=== PATIENT | female | born 1975 | race Caucasian/White ===

== ENCOUNTER 2017-07-19 06:24 | Observation (INO) | payer BC ==
[2017-07-03 08:16] VITALS: Ht 152.4 cm; Wt 60.8 kg
--- NOTE | 2017-07-03 08:41 | PAT Medication Instructions ---
Service Date Jul 03, 2017. Current Home Medication List Acetaminophen/Codeine (Tylenol W/Codeine #3), 2 TAB PO Q4H PRN for Pain Lamotrigine (Lamictal), 150 MG PO BID Lorazepam (Lorazepam), 0.5 MG PO DAILY PRN for Migraine Ondansetron Hcl (Zofran), 4 MG PO Q6 PRN for Nausea Propranolol Hcl (Propranolol Hcl Er), 120 MG PO HS Medication Instructions For Your Scheduled Surgery - Take the following medications the morning of surgery with a sip of water: Acetaminophen/Codeine (Tylenol W/Codeine #3), 2 TAB PO Q4H PRN for Pain (okay to take up to 4 hours prior to surgery if needed) Lamotrigine (Lamictal), 150 MG PO BID Lorazepam (Lorazepam), 0.5 MG PO DAILY PRN for Migraine (if needed) Ondansetron Hcl (Zofran), 4 MG PO Q6 PRN for Nausea (if needed) - Take the following medications as scheduled the night before surgery: Acetaminophen/Codeine (Tylenol W/Codeine #3), 2 TAB PO Q4H PRN for Pain (if needed) Lamotrigine (Lamictal), 150 MG PO BID Lorazepam (Lorazepam), 0.5 MG PO DAILY PRN for Migraine (if needed) Ondansetron Hcl (Zofran), 4 MG PO Q6 PRN for Nausea (if needed) Propranolol Hcl (Propranolol Hcl Er), 120 MG PO HS If you have any questions please call us at [phone] or [phone] or [phone]
[2017-07-03 10:44] LABS: BASO % 1.1 %; BASO ABS # 0.06 K/uL (0-0.2); EOS % 2.2 %; EOS ABS # 0.12 K/uL (0-0.5); HEMATOCRIT 41.2 % (37-47); HEMOGLOBIN 13.7 g/dL (12.0-16.0); IG# 0.02 K/uL (0.00-0.02); LYMPH % 30.5 %; LYMPH ABS # 1.67 K/uL (1.2-3.4); MEAN CELL VOLUME 92.4 fL (80-100); MEAN CORPUSCULAR HEMOGLOBIN 30.7 pg (25-34); MEAN CORPUSCULAR HGB CONC 33.3 g/dl (32-36); MEAN PLATELET VOLUME 10.1 fL (7.4-10.4); MONO % 7.7 %; MONO ABS # 0.42 K/uL (0.11-0.59); NEUT % 58.1 %; NEUT ABS # 3.18 K/uL (1.4-6.5); PLATELET COUNT 202 K/uL (130-400); RED CELL DISTRIBUTION WIDTH CV 12.6 % (11.5-14.5); RED CELL DISTRIBUTION WIDTH SD 42.4 fL (36.4-46.3); WHITE BLOOD COUNT 5.47 K/uL (4.8-10.8)
[2017-07-19] VITALS (7 sets, daily range): BP systolic 94–100; BP diastolic 59–68; PULSE 75–87; TEMP 36.4–36.9; O2SAT 97–100
[~2017-07-19] VITALS: Ht 152.4 cm; Wt 60.8 kg
[~2017-07-19 06:24] MED LIST: ACET-749 PO; ATV5X PO; CEFAZOLIN 2000MG IV PUSH 15 ML IV SCH; LACTATED RINGER'S 1000ML 1,000 ML IV SCH; LAMO150T PO; ONDA4TAB46 PO; PROP80CA PO
--- NOTE | 2017-07-19 07:46 | History & Physical Bridge Note ---
H&P Re-Evaluation Bridge Note: I have examined the patient, reviewed the History & Physical and in the interval since the performance of the History & Physical I have noted the following changes of clinical significance: No changes noted
[2017-07-19] MEDS ORDERED: METHYLENE BLUE 0.5% 10 ML VIAL ONE (08:31)
[2017-07-19] MEDS ORDERED: BUPIVACAINE 0.5 % 5 MG/1 ML MPF 30ML VIAL ONE (08:31)
[2017-07-19] MEDS ORDERED: FENTANYL CITRATE INJ 50 MCG/1 ML 2 ML VIAL ONE ×2 (08:43→11:29)
[2017-07-19] MEDS ORDERED: HYDROmorphone INJ 2 MG/ML SYR/VIAL ONE (09:33)
[2017-07-19] MEDS ORDERED: ROCURONIUM BROMIDE 10 MG/ML 5 ML VIAL IV ONE (10:47)
[2017-07-19] MEDS ORDERED: PROPOFOL IV EMULSION 10 MG/ML 20 ML VIAL IV ONE (10:47)
[2017-07-19] MEDS ORDERED: NEOSTIGMINE METHYLSULFATE 5 MG/5 ML SYR ONE (10:50)
[2017-07-19] MEDS ORDERED: DEXAMETHASONE SOD INJ 4 MG/ML VIAL ONE (10:50)
[2017-07-19] MEDS ORDERED: LIDOCAINE HCL 2% 2 ML VIAL (20MG/ML) ONE (10:50)
[2017-07-19] MEDS ORDERED: GLYCOPYRROLATE INJ 0.2 MG/ML VIAL ONE (10:50)
[2017-07-19] MEDS ORDERED: KETOROLAC TROMETHAMINE 30 MG/ML VIAL ONE (10:50)
[2017-07-19] MEDS ORDERED: ONDANSETRON INJ 2 MG/ML 2 ML VIAL ONE ×2 (10:50→11:20)
--- NOTE | 2017-07-19 10:54 | [facility] Post Operative Brief Note ---
Immediate Operative Summary Operative Date Jul 19, 2017. Pre-Operative Diagnosis Abnormal uterine bleeding, failed endometrial ablation Post-Operative Diagnosis Abnormal uterine bleeding, Failed endometrial ablation Procedure(s) Performed Total Laparoscopic Hysterectomy, Bilateral Salpingectomy, Cystoscopy Surgeon Dr. Welsh Cell Tower Climber Surgeon(s) Dr. Ashby Estimated Blood Loss 50 cc Findings Consistent with Post-Op Diagnosis Fluids (cc crystalloids) 1300 Specimens A: Uterus B: Right Fallopian Tube C: Left Fallopian Tube Drains None Anesthesia Type General Complication(s) none Disposition Disposition: Recovery Room / PACU
[2017-07-19] MEDS ORDERED: KETOROLAC TROMETHAMINE 30 MG/ML VIAL IV. PRN (11:00)
[2017-07-19] MEDS ORDERED: ONDANSETRON INJ 2 MG/ML 2 ML VIAL IV PRN ×2 (11:00→11:30)
[2017-07-19] MEDS ORDERED: ACETAMINOPHEN 325 MG TAB PO PRN (11:00)
[2017-07-19] MEDS ORDERED: SIMETHICONE 80 MG CHEW PO PRN (11:00)
[2017-07-19] MEDS ORDERED: PROMETHAZINE HCL INJ 12.5 MG in SODIUM CHLORIDE 0.9% 50ML 50 ML IV PRN (11:00)
[2017-07-19] MEDS ORDERED: OXYCODONE/ACETAMINOPHEN 5-325 TAB PO PRN ×2 (11:00)
--- NOTE | 2017-07-19 11:14 | Discharge Instructions ---
Discharge Instructions Date of Service Jul 19, 2017. Admission Reason for Admission: Abnormal Uterine Bleeding, Failed Endometrial Abla Discharge Discharge Diagnosis / Problem: Post-op Discharge Goals Goal(s): Routine recovery after surgery Activity Recommendations Activity Limitations: as noted below POST OPERATIVE: BOWEL FUNCTION/MEDICATIONS: 1. Constipation pain and discomfort are the most common complaints 5-7 days after surgery. Points 2-6 address the things that can help. 2. Chewing gum can help stimulate the gut and help improve digestion and motility. 3. Milk of Magnesia 1-2 times per day until return of bowel function. 4. Colace is a stool softener that helps. Taking this 2-3 times per day until bowel function returns to normal is highly recommended. 5. Dulcolax is a laxative that may be used if several days have passed without a bowel movement. Alternatively Miralax may be used daily instead. 6. Drink plenty of fluids as this will also reduce constipation. 7. Narcotic pain medications will be prescribed by your physician. They are safe to use and we encourage you to use them. If you are not allergic, ibuprofen will also be prescribed. Many patients will be able to transition off of the narcotic medications to ibuprofen by postoperative day 3. ACTIVITY RECOMMENDATIONS: 1. Get plenty of rest and listen to your body. If you are tired, take a nap. 2. You may shower, but do not take a tub bath until you see your doctor at the 2 week post operative visit. 3. Absolutely NO intercourse and nothing in the vagina until you are examined by your doctor at the 6 week visit. At that visit it will be determined when such activities can be resumed. This can range from 6-12 weeks after your surgery depending on healing time. 4. The main physical activity in the first week should be walking. By the second week you can slowly increase activity. There are no limits on walking up and down stairs. 5. Do not lift more than 5-10 lbs for 4 weeks. Remember the "one-handed rule", i.e. if you can lift something with only one hand it's likely okay. 6. Minimize marine engineering consultant like vacuuming and exercising for 4 weeks. "Overdoing it" can lead to incisions not healing, pain and vaginal bleeding , so again, listen to your body. 7. Driving can be resumed when you feel able. Do not drive within 24 hours of taking a narcotic medication. EXPECTATIONS: 1. Vaginal spotting, bleeding and discharge are common after surgery. There may even be an odor to the discharge which is often related to sutures used in the vagina. If you experience heavy vaginal bleeding, call the office number day or night [phone]. 2. Bladder discomfort is common after surgery from the catheter. This usually resolves in 1-2 weeks. 3. By the end of the 3rd or 4th week you should be feeling much better. It may take up to 6 weeks for your energy levels to return to normal. 4. Narcotic medications have side effects such as: dizziness, headache, nausea and/or vomiting. If you suspect your pain medication is causing problems, call our office and we may be able to prescribe an alternate medication. 5. The skin incisions are often covered with a liquid bandage. This will gradually peel off over time. CALL THE OFFICE IF YOU HAVE ANY OF THE FOLLOWIN. Temperature of 101 degrees or higher. 2. Severe abdominal or pelvic pain not relieved by pain medication. 3. Persistent nausea or vomiting. 4. Increased pain with urination or difficulty urinating. 5. Bright red bleeding that soaks more than 1 pad per hour. CONTACT PHONE NUMBERS: Main Office: [phone] FOLLOW-UP: Post-Operative Appointments: * Individual instructions will have been given about the timing of your first examination, but this is usually at the end of the second week home. * You will need to call the office at soon after discharge to make the appointment for your post-op check-up if it has not already been scheduled. * Additional information regarding activity, sexual intercourse and when to return to work will be given at this appointment. WE WISH YOU A SPEEDY RECOVERY! . Current Hospital Diet Patient's current hospital diet: Discharge Diet Recommended Diet: Regular Diet Procedures Procedures Performed: Total Laparoscopic Hysterectomy, Bilateral Salpingectomy, Cystoscopy Pending Studies Studies pending at discharge: no Medical Emergencies . Who to Call and When: Medical Emergencies: If at any time you feel your situation is an emergency, please call 911 immediately. . Non-Emergent Contact Non-Emergency issues call your: Specialist . . "Provider Documentation" section prepared by Yasmin Thakkar. . VTE Core Measure Inpt VTE Proph given/why not?: Treatment not indicated
[2017-07-19] MEDS ORDERED: MYL80 PO (11:18)
[2017-07-19] MEDS ORDERED: MTR600X PO (11:18)
[2017-07-19] MEDS ORDERED: OXYC-57 PO (11:18)
[2017-07-19] MEDS ORDERED: ACET-1047 PO (11:18)
[2017-07-19] MEDS ORDERED: CLC100 PO (11:18)
[2017-07-19] MEDS ORDERED: PROMETHAZINE HCL INJ 6.25 MG in SODIUM CHLORIDE 0.9% 50ML 50 ML IV PRN (11:30)
[2017-07-19] MEDS ORDERED: FENTANYL CITRATE INJ 50 MCG/1 ML 2 ML VIAL IV PRN (11:30)
[2017-07-19] MEDS ORDERED: ATROPINE SULFATE 0.1 MG/ML 5ML SYR IV PRN (11:30)
[2017-07-19] MEDS ORDERED: EpHEDrine SULFATE INJ 50 MG/ML AMP IV PRN (11:30)
--- NOTE | 2017-07-19 11:49 | [facility] Operative Report ---
Operative Report Operative Date Jul 19, 2017. Pre-Operative Diagnosis Abnormal uterine bleeding, failed endometrial ablation Post-Operative Diagnosis Abnormal uterine bleeding, Failed endometrial ablation Procedure(s) Performed Total Laparoscopic Hysterectomy, Bilateral Salpingectomy, Cystoscopy Surgeon Dr. Welsh Body Make Up Artist Surgeon(s) Dr. Ashby Estimated Blood Loss 50 cc Findings 1. Small anteverted uterus 2. Adhesions of the bladder to the lower uterine segment 3. Normal appearing fallopian tubes and ovaries 4. Anterior and posterior cul-de-sacs were free of lesions 5. Normal appearing liver edge 6. Appendix not visualized Fluids 1300 Specimens A: Uterus and cervix B: Right Fallopian Tube C: Left Fallopian Tube Drains None Anesthesia Type General Complication(s) none Disposition Recovery Room / PACU Description of Procedure Mrs. Catrachita Soriano is a 42 year old patient known to have abnormal uterine bleeding and a failed endometrial ablation. The patient requested definitive management with a hysterectomy after discussing all possible medical options. Consent was signed in the office prior and all risks and benefits were reviewed. Under GA in the dorsal lithotomy position, the patient was prepped and drapped in the usual sterile fashion. A weighted speculum was placed in the vagina and with the help of a right angle retractor the cervix was visualized and grasped anteriorly with a single tooth tenaculum. The uterus was then sounded to 8 cm. A V-care uterine manipulator was then applied to allow mobilization of the uterus. The weighted speculum was then removed. Attention was turned to the abdomen. 0.50% marcaine solution was infiltrated in the subumbilical area. A 5 mm subumbilical incision was made through the skin with a #11 blade and the 5 mm trocar with laparoscope was inserted uneventfully in the peritoneal cavity. The peritoneal cavity was insufflated with CO2 gas to a maximum pressure of 15 mmHg. The laparoscope confirmed appropriate location with no inadvertent damage to underlying structures. Examination of the peritoneal cavity revealed the above noted findings and uterine perforation from the V-care manipulator at the fundus. The manipulator was readjusted and hemostasis noted. The patient was then placed in steep Trendelenburg and three more 5 mm trocars were placed, one on the right and two on the left, taking care to avoid the epigastric vessels. All trocars were placed under direct visualization with no inadvertent damage to underlying structures. The uterus was upheld from below with good visualization. Beginning of the left side, the left round ligament was then ligated and cut with the NATTY Harmonic. Following this, the anterior leaf of the broad ligament was then taken down on the left side, dissecting down towards the peritoneal reflection at the base of the bladder and adjacent to the cervix. The right round ligament was then ligated and cut. Following this, the anterior leaf of the broad ligament was then taken down on the right side, dissecting down towards the peritoneal reflection at the base of the bladder and adjacent to the cervix. Both sides met and the anterior leaflet had been appropriately skeletonized. Once the bladder was appropriately dissected free from the lower anterior uterine segment and the tissues skeletonized, the uterine arteries were bilaterally clamped and ligated. Pedicles were checked and hemostatic. At the level of the plastic cup of the uterine manipulator, the vaginal vault was incised circumferentially with an NATTY Harmonic. The uterus and cervix was delivered through the vagina and sent to pathology. A sterile glove was placed into the vagina to form a pneumatic seal and all the pedicles as well as the cuff edges were examined. Hemostasis was noted. Attention was then returned to the left side and distally along the length of the fallopean tube, the mesosalpinx was exposed by lifting the fimbrae of the fallopian tube up towards the anterior abdominal wall. The mesosalpinx was then sequentially, clamped, ligated, and cut using the NATTY Harmonic working alongside the length of the tube. The tube was cut, removed through the port, attention was then turned to the other side. The same process of the salpingectomy was repeated on the right, sequentially clamping, ligating, and cutting the mesosalpinx being sure to not injure the adjacent ovarian tissue or other surrounding structures. The tube was cut and removed through the port. The vaginal vault was then closed with a 2-0 V-loc being sure to avoid the bladder lateral pedicles. Following vault closure, an inspection of all areas was made to ensure hemostasis. Floseal hemostatic agent was applied to the vaginal cuff. All ports were removed under direct visualization and hemostasis noted. The final 5 mm port was then opened to release the abdominal gas and removed with the laparoscope inplace to visualize its removal. All the incision sites were then closed with 4-0 monocryl sutures in a subcuticular fashion and dermabond. Cystoscopy was then performed with a 70 degree scope and revealed no lesions or suture in the bladder. Normal appearing bladder dome and trigone. Bilateral efflux of methylene blue by ureteral orifices. The bladder was then drained and the cystoscope was then removed. At the end of the procedure, all sponges, instruments, and sharps were counted and correct. Estimated blood loss was 50 ml. The patient was taken to recovery in stable condition. I attest to the content of the Intraoperative Record and any orders documented therein. Any exceptions are noted below.
[2017-07-19] MEDS ORDERED: LACTATED RINGER'S 1000ML 1,000 ML IV SCH (13:15)
--- NOTE | 2017-07-19 13:44 | Anesthesiology Progress Note ---
Anesthesia Post Op Note Date & Time Jul 19, 2017 at 13:44 Vital Signs Pain Intensity: 2 Vital Signs Past 12 Hours Date Time Temp Pulse Resp B/P (MAP) Pulse Ox O2 Delivery O2 Flow Rate FiO2 07/19/17 13:30 36.5 79 18 100/68 (79) 97 Room Air 07/19/17 13:00 36.4 87 18 94/61 (72) 98 Room Air 07/19/17 12:30 36.6 78 18 99/65 (76) 99 Room Air 07/19/17 12:15 98 18 104/62 100 Nasal Cannula 2 07/19/17 12:05 36.5 82 15 107/66 100 Nasal Cannula 2 07/19/17 11:55 81 15 102/65 100 Nasal Cannula 2 07/19/17 11:45 84 19 97/49 100 Nasal Cannula 2 07/19/17 11:35 77 19 123/68 99 Nasal Cannula 2 07/19/17 11:25 82 19 104/60 100 Nasal Cannula 2 07/19/17 11:15 81 24 107/67 100 Nasal Cannula 2 07/19/17 11:08 36.4 94 16 110/72 100 Nasal Cannula 2 07/19/17 07:17 36.9 75 16 100/59 (73) 98 Room Air Notes Mental Status: alert / awake / arousable, participated in evaluation Pt Amnestic to Procedure: Yes Nausea / Vomiting: adequately controlled Pain: adequately controlled Airway Patency, RR, SpO2: stable & adequate BP & HR: stable & adequate Hydration State: stable & adequate Anesthetic Complications: no major complications apparent
[2017-07-19] MEDS ORDERED: IV FLUIDS COMPLETED PRN (14:00)
[2017-07-19] MEDS ORDERED: IBUPROFEN 600 MG TAB PO SCH (18:00)
[2017-07-19] MEDS ORDERED: DOCUSATE SODIUM 100 MG CAP PO SCH (21:00)
== END 2017-07-19 17:30 | disposition home or self-care (01) ==
LOC: C.ACU 06:24 → C.MS4N 07:00 → ENRESERV 12:40
PROVIDERS: ADMIT Obstetrics & Gynecology Obstetrics; ATTEND Obstetrics & Gynecology Obstetrics
DX: N93.9 Abnormal uterine and vaginal bleeding, unspecified (principal); Z98.890 Other specified postprocedural states; G40.909 Epilepsy, unspecified, not intractable, without status epilepticus; G43.909 Migraine, unspecified, not intractable, without status migrainosus; Z88.0 Allergy status to penicillin; Z80.3 Family history of malignant neoplasm of breast; Z83.3 Family history of diabetes mellitus; Z80.1 Family history of malignant neoplasm of trachea, bronchus and lung

== ENCOUNTER 2017-08-10 16:40 | Emergency (ER) | payer BC ==
[~2017-08-10] VITALS: Ht 152.4 cm; Wt 59.6 kg
[~2017-08-10 16:40] MED LIST changes: +ACET-1047 PO; -CEFAZOLIN 2000MG IV PUSH 15 ML IV SCH; +CLC100 PO; -LACTATED RINGER'S 1000ML 1,000 ML IV SCH; +MTR600X PO; +MYL80 PO; +OXYC-57 PO
[2017-08-10 16:42] VITALS: TEMP 36.9; Ht 152.4 cm; Wt 59.6 kg
--- NOTE | 2017-08-10 17:19 | DIAGNOSTIC IMAGING REPORT ---
R FOOT MIN 3 VIEWS ROUTINE HISTORY: 42 years-old Female R foot pain acute right-sided foot pain COMPARISON: Right foot radiographs 09/20/2012 TECHNIQUE: 3 views of the right foot FINDINGS: No acute fracture or dislocation. Minimal marginal spurring of the talonavicular joint. Os peroneum noted. Soft tissues are unremarkable without opaque foreign body. No stress fracture. IMPRESSION: No acute fracture. The above report was generated using voice recognition software. It may contain grammatical, syntax or spelling errors. Electronically signed by: Florentin Brooks M.D. 08/10/2017 5:18 PM Dictated Date/Time: 08/10/2017 5:16 PM
[2017-08-10] MEDS ORDERED: AMOX500C3 PO (17:30)
[2017-08-10 17:47] VITALS: BP 117/62; PULSE 85; O2SAT 97
--- NOTE | 2017-08-10 23:41 | EMERGENCY ROOM VISIT NOTE ---
ED Visit Note First contact with patient: 16:45 Chief Complaint: Right foot pain. History of Present Illness: Ms. Soriano is a 42-year-old white female who ambulates on crutches into the ED complaining of dorsal right foot pain. Patient reports approximately 1 hour ago she was at home packing closed for her children. She reports she twisted around on her foot to see if there was any additional close left to pack and developed pain over superior aspect of the right foot. Since that time the pain has been constant. Historically she reports she has had a broken right fifth metacarpal approximately 4 years ago without complications. Patient describes her pain as a burning sensation. She rates her discomfort 10/ 10. Her pain is nonradiating. Her pain worsens with palpation, weightbearing and ambulation. She reports she has taken ibuprofen prior to arrival at the hospital without relief of her discomfort. She denies any associated pain including knee pain, lower leg pain, ankle pain, toe pain, leg weakness/numbness /tingling. Review of Systems: As noted above in history of present illness. Past Medical History: As previously noted, seizure disorder, status post hysterectomy, section. Current Medications: Medications Dose Route/Sig Max Daily Dose Days Date Category Dose Instructions Amoxil (Amoxicillin) Unknown Strength Cap 1 Tab PO BID 08/10/17 Reported take 1 tablet twice a day for 10 days Ibuprofen 600 Mg Tab 600 Mg PO Q6H PRN 07/19/17 Rx Zofran (Ondansetron HCl) 4 Mg Tab 4 Mg PO Q6 PRN 04/06/17 Reported Lorazepam 0.5 Mg Tab 0.5 Mg PO DAILY PRN 08/28/14 Reported Propranolol Hcl Er (Propranolol Hcl) 80 Mg Cap 120 Mg PO HS 08/28/14 Reported Tylenol W/Codeine #3 (Acetaminophen/Codeine Phosphate) 300 Mg/30 Mg Tab 2 Tab PO Q4H PRN 08/28/14 Reported Lamictal (Lamotrigine) 150 Mg Tab 150 Mg PO BID 12/17/12 Reported Allergies to Medications: Augmentin. Social History: Patient is currently employed; she feels safe in her home environment; she denies tobacco and alcohol use. Physical Examination: Vital Signs: Date Time Temp Pulse Resp B/P (MAP) Pulse Ox O2 Delivery O2 Flow Rate FiO2 08/10/17 17:47 85 20 117/62 97 08/10/17 16:42 36.9 115 20 135/89 97 Room Air GENERAL: 42-year-old female in mild distress due to pain, nontoxic-appearing, afebrile and hemodynamically stable. Patient is mildly anxious. NEUROLOGICAL: Awake, alert and oriented to person, place and time. Answering questions appropriately and following commands. Good hand eye coordination. No focal motor sensory deficits. SKIN: Warm, dry and pink. RIGHT FOOT: No gross bony deformity. Patient has mild brownish discoloration of the skin over the dorsal aspect of the foot that she feels are contusions but these do not appear contusion like. There are not erythematous or ecchymotic. There is some mild swelling over the anterior foot. Patient has no tenderness around the ankle and there is no swelling around the ankle. Is no ligamentous instability of the ankle. Patient has tenderness over the extensor tendons over the top of the foot without any obvious deformity of the tendons. I do not appreciate a great amount of bony tenderness under the tendons. She does have full range of motion in plantarflexion and dorsiflexion of the ankle against resistance. She is able to flex and extend all MCP, PIP and DIP joints of the toes. Throughout the toes the skin was warm and pink and capillary refill was brisk. He is able to distinguish light sensations through all dermatomes. On palpation of the plantar surface patient has tenderness and pain when the arches are flattened but once again no bony deformity, bony crepitus, ecchymosis or swelling. ED Course: Patient is assessed as noted above. Patient's medication list was reviewed. Patient was offered pain medication and refused. Right Foot X-Rays: Were read by myself and the radiologist showing no acute fractures or dislocations. Radiologist notes minimal marginal spurring of the talonavicular joint, os peroneum was noted. Patient was placed in a postop shoe and the crutches she was using were adjusted for her use. Patient was educated about today's findings and instructed on her treatment plan ; she verbalized understanding and agreement with this plan. Clinical Impression: Right foot pain. Decision-Making: Initially my differential diagnosis I considered foot sprain, foot strain, foot contusion, foot fracture and other causes. Disposition: Patient discharged home in stable condition; prior to departure she was reassessed and subjectively reported she was feeling better and rated her discomfort 8/10. Plan: Comfort measures were discussed with the patient including rest, ice, elevation , postop shoe and crutch use and alternating ibuprofen and acetaminophen as needed for pain. Patient was encouraged to follow-up with her primary care provider or orthopedics if no better in 5-7 days. Patient is encouraged to return the ED for worsening pain, worsening/ uncontrolled swelling, foot weakness/numbness/tingling or any new/concerning symptoms.
== END 2017-08-10 17:48 | disposition home or self-care (01) ==
LOC: C.EDB 16:41 → C.EDD 17:48
DX: M79.671 Pain in right foot (principal); G40.909 Epilepsy, unspecified, not intractable, without status epilepticus; Z90.710 Acquired absence of both cervix and uterus; Z98.891 History of uterine scar from previous surgery

== ENCOUNTER 2017-08-28 07:54 | Emergency (ER) | payer BC ==
[~2017-08-28] VITALS: Ht 152.4 cm; Wt 57.9 kg
[~2017-08-28 07:54] MED LIST changes: -ACET-1047 PO; +AMOX500C3 PO; -CLC100 PO; -MYL80 PO; -OXYC-57 PO
[2017-08-28 08:05] VITALS: TEMP 36.7; Ht 152.4 cm; Wt 57.9 kg
[2017-08-28] MEDS ORDERED: ONDANSETRON INJ 8 MG in DEXTROSE 5% 50ML 50 ML IV SCH (08:27)
[2017-08-28] MEDS ORDERED: SODIUM CHLORIDE 0.9% 1000ML 1,000 ML IV STA (08:27)
[2017-08-28] MEDS ORDERED: ONDANSETRON 8 MG/54 ML D5W IV STA (08:27)
[2017-08-28] MEDS ORDERED: OPTIRAY 320 IV PRN (08:45)
[2017-08-28] MEDS ORDERED: HYDROmorphone INJ 0.5 MG/0.5 ML SYR IV STA (09:11)
[2017-08-28 09:21] LABS: BASO % 0.2 %; BASO ABS # 0.01 K/uL (0-0.2); EOS % 1.3 %; EOS ABS # 0.07 K/uL (0-0.5); HEMATOCRIT 40.6 % (37-47); HEMOGLOBIN 14.1 g/dL (12.0-16.0); LYMPH % 23.4 %; LYMPH ABS # 1.31 K/uL (1.2-3.4); MEAN CORPUSCULAR HEMOGLOBIN 30.9 pg (25-34); MEAN CORPUSCULAR HGB CONC 34.7 g/dl (32-36); MEAN PLATELET VOLUME 9.7 fL (7.4-10.4); MONO % 6.1 %; MONO ABS # 0.34 K/uL (0.11-0.59); NEUT ABS # 3.87 K/uL (1.4-6.5); PLATELET COUNT 196 K/uL (130-400); RED CELL DISTRIBUTION WIDTH CV 12.4 % (11.5-14.5); RED CELL DISTRIBUTION WIDTH SD 39.8 fL (36.4-46.3)
[2017-08-28 09:39] LABS: ALBUMIN 4.1 gm/dl (3.4-5.0); CALCIUM 9.3 mg/dl (8.5-10.1); CREATININE 0.6 mg/dl (0.60-1.20); POTASSIUM 3.5 mmol/L (3.5-5.1)
[2017-08-28 09:42] LABS: TOTAL PROTEIN 7.5 gm/dl (6.4-8.2)
--- NOTE | 2017-08-28 10:53 | DIAGNOSTIC IMAGING REPORT ---
CT ABD/PELVIS IV CONTRAST ONLY CLINICAL HISTORY: periumbilical to RUQ abd pain COMPARISON STUDY: None. TECHNIQUE: Following the IV administration of 92 mL of Optiray-320, CT scan of the abdomen and pelvis was performed from the lung bases to the proximal femurs. Images are reviewed in the axial, sagittal, and coronal planes. IV contrast was administered without complication. A dose lowering technique was utilized adhering to the principles of ALARA. CT DOSE: 399.48 mGycm FINDINGS: Lower chest: There are mild dependent atelectatic changes present. Liver: The contrast-enhanced liver is normal in size, contour, and attenuation. There is no intrahepatic biliary ductal dilatation. The hepatic veins and portal veins are patent. Gallbladder: Unremarkable. Spleen: Normal in size and attenuation. Pancreas: Unremarkable. Adrenal glands: Unremarkable. Kidneys: There is symmetric renal cortical enhancement. The kidneys are normal in size without hydronephrosis. Bowel: There are no transition zones indicate bowel obstruction. The appendix is not visualized with certainty. There are no pericecal inflammatory changes. Peritoneum: There is no intraperitoneal free air or abdominal ascites. Vasculature: The abdominal aorta is normal in course and caliber. Adenopathy: None. Pelvic viscera: There is a 3.5 cm right ovarian cyst. The uterus appears surgically absent Skeletal structures: No destructive osseous lesions are seen. IMPRESSION: 1. No evidence of bowel obstruction. No evidence of free air 2. The appendix is not visualized with certainty. There are no findings to indicate acute appendicitis 3. 3.5 cm right ovarian cyst Electronically signed by: Tyrone Dave M.D. 08/28/2017 10:52 AM Dictated Date/Time: 08/28/2017 10:46 AM
[2017-08-28] MEDS ORDERED: GI COCKTAIL PO ONE (11:15)
[2017-08-28] MEDS ORDERED: MoRPHine SULFATE 4 MG/ML 1 ML CARP\\VIAL IV STA (11:15)
[2017-08-28] MEDS ORDERED: KETOROLAC TROMETHAMINE 30 MG/ML VIAL IV STA (11:15)
[2017-08-28] MEDS ORDERED: LIDOCAINE HCL 2% VISC SOLN 20 ML UDC ONE (12:02)
[2017-08-28] MEDS ORDERED: ALUMINUM/MAGNESIUM SUSP 30 ML UDC ONE (12:02)
[2017-08-28] MEDS ORDERED: ONDA4TAB65 PO (12:18)
[2017-08-28 12:34] VITALS: BP 116/50; PULSE 85; O2SAT 99
--- NOTE | 2017-08-28 14:31 | EMERGENCY ROOM VISIT NOTE ---
History Report prepared by Leigh: Jose Mckay Under the Supervision of: Dr. Lance Stokes D.O. First contact with patient: 08:08 Chief Complaint: DEHYDRATION Stated Complaint: DEHYDRATION DUE TO FLU Nursing Triage Summary: positive influenza last week finished tamiflu on Saturday started with abd pain and headache on Saturday vomiting 5 times yesterday minimal fluid intake since Saturday dizzy lightheaded no diarrhea History of Present Illness The patient is a 42 year old female who presents to the Emergency Room with complaints of intermittent diffuse abdominal pain beginning three days ago. She describes her pain as "dull". She rates her pain as a 10/10 in severity. The patient denies modifying factors. She also complains of a headache, and nausea. She states that she has not been eating and drinking much for the past week. The patient notes that she was diagnosed with influenza last week. She finished taking a course of Tamiflu three days ago. Her symptoms included cough, fevers, and body aches. The patient has a history of hysterectomy. She notes that she did not urinate yesterday. She is concerned that she may be dehydrated from the flu. Pt denies recent fevers, chest pain, or shortness of breath. She has a history of migraines, and states that her current headache is much less severe than her normal migraines. Source of History: patient Onset: Three days ago Position: abdomen (diffuse) Symptom Intensity: 10/10 Quality: dull Timing: intermittent Modifying Factors (Worsening): other (none) Modifying Factors (Relieving): other (none) Associated Symptoms: + headache, + nausea, No fevers (recent), No chest pain , No SOB Review of Systems See HPI for pertinent positives & negatives. A total of 10 systems reviewed and were otherwise negative. Past Medical & Surgical Medical Problems: (1) Abnormal uterine bleeding (2) ANXIETY STATE NOS (3) EPILEPSY COMP PREG/CHILDBIRTH/PUERPERIUM, DELIVERED (4) Migraine (5) Patient currently (6) SYNCOPE AND COLLAPSE Surgical Problems: (1) S/P laparoscopic hysterectomy Family History No pertinent family history stated. Social History Smoking Status: Never Smoker Alcohol Use: none Drug Use: none Marital Status: Housing Status: lives with family Occupation Status: employed Current/Historical Medications Scheduled Lamotrigine (Lamictal), 150 MG PO BID Propranolol Hcl (Propranolol Hcl Er), 120 MG PO HS Scheduled PRN Acetaminophen/Codeine (Tylenol W/Codeine #3), 2 TAB PO Q4H PRN for Pain Ibuprofen (Ibuprofen), 600 MG PO Q6H PRN for Pain Lorazepam (Lorazepam), 0.5 MG PO DAILY PRN for Migraine Ondansetron Hcl (Zofran), 4 MG PO Q6 PRN for Nausea Ondansetron Hcl (Zofran), 4 MG PO TID PRN for Nausea Allergies Coded Allergies: Amoxicillin (Verified Allergy, Unknown, GI SYMPTOMS, 08/10/17) vomiting Clavulanic Acid (Verified Allergy, Unknown, GI SYMPTOMS, 08/10/17) vomiting Physical Exam Vital Signs Date Time Temp Pulse Resp B/P (MAP) Pulse Ox O2 Delivery O2 Flow Rate FiO2 08/28/17 12:34 85 18 116/50 99 08/28/17 11:50 94 18 103/64 99 Room Air 08/28/17 10:31 110/68 08/28/17 10:29 80 17 97 Room Air 08/28/17 10:01 103/60 08/28/17 09:59 64 13 99 Room Air 08/28/17 09:54 78 16 100 08/28/17 09:31 114/69 08/28/17 09:29 99/74 08/28/17 09:24 78 20 97/55 99 Room Air 08/28/17 09:13 83 08/28/17 09:07 77 20 96/57 99 Room Air 08/28/17 09:04 96/57 08/28/17 08:05 36.7 56 20 98/29 99 Room Air Physical Exam GENERAL: Sitting up in bed, holding epigastric/periumbilical area. Mild distress , nontoxic. EYE EXAM: normal conjunctiva. PERRL and EOM's grossly intact. OROPHARYNX: no exudate, no erythema, lips, buccal mucosa, and tongue normal and mucous membranes are moist NECK: supple, no nuchal rigidity, no adenopathy, non-tender LUNGS: Clear to auscultation. Normal chest wall mechanics HEART: no murmurs, S1 normal and S2 normal ABDOMEN: abdomen soft, normo-active bowel sounds, no masses, no rebound or guarding. Tender to palpation in the epigastric/RUQ area. BACK: Back is symmetrical on inspection and there is no deformity, no midline tenderness, no CVA tenderness. SKIN: no rashes and no bruising UPPER EXTREMITIES: upper extremities are grossly normal. LOWER EXTREMITIES: No pitting edema. NEURO EXAM: Normal sensorium, cranial nerves II-XII grossly intact, normal speech, no gross weakness of arms, no gross weakness of legs. Medical Decision & Procedures ER Provider Diagnostic Interpretation: Radiology results as stated below per my review and the radiologist's interpretation: CT ABD/PELVIS IV CONTRAST ONLY FINDINGS: Lower chest: There are mild dependent atelectatic changes present. Liver: The contrast-enhanced liver is normal in size, contour, and attenuation. There is no intrahepatic biliary ductal dilatation. The hepatic veins and portal veins are patent. Gallbladder: Unremarkable. Spleen: Normal in size and attenuation. Pancreas: Unremarkable. Adrenal glands: Unremarkable. Kidneys: There is symmetric renal cortical enhancement. The kidneys are normal in size without hydronephrosis. Bowel: There are no transition zones indicate bowel obstruction. The appendix is not visualized with certainty. There are no pericecal inflammatory changes. Peritoneum: There is no intraperitoneal free air or abdominal ascites. Vasculature: The abdominal aorta is normal in course and caliber. Adenopathy: None. Pelvic viscera: There is a 3.5 cm right ovarian cyst. The uterus appears surgically absent Skeletal structures: No destructive osseous lesions are seen. IMPRESSION: 1. No evidence of bowel obstruction. No evidence of free air 2. The appendix is not visualized with certainty. There are no findings to indicate acute appendicitis 3. 3.5 cm right ovarian cyst Electronically signed by: Tyrone Dave M.D. 08/28/2017 10:52 AM Laboratory Results 08/28/17 08:55 Red Blood Count 4.56, Mean Corpuscular Volume 89.0, Mean Corpuscular Hemoglobin 30.9, Mean Corpuscular Hemoglobin Concent 34.7, Mean Platelet Volume 9.7, Neutrophils (%) (Auto) 69.0, Lymphocytes (%) (Auto) 23.4, Monocytes (%) (Auto) 6.1, Eosinophils (%) (Auto) 1.3, Basophils (%) (Auto) 0.2, Neutrophils # (Auto) 3.87, Lymphocytes # (Auto) 1.31, Monocytes # (Auto) 0.34, Eosinophils # (Auto) 0.07, Basophils # (Auto) 0.01 08/28/17 08:55 Test 08/28/17 08:55 08/28/17 09:38 White Blood Count 5.60 K/uL (4.8-10.8) Red Blood Count 4.56 M/uL (4.2-5.4) Hemoglobin 14.1 g/dL (12.0-16.0) Hematocrit 40.6 % (37-47) Mean Corpuscular Volume 89.0 fL (80-100) Mean Corpuscular Hemoglobin 30.9 pg (25-34) Mean Corpuscular Hemoglobin Concent 34.7 g/dl (32-36) Platelet Count 196 K/uL (130-400) Mean Platelet Volume 9.7 fL (7.4-10.4) Neutrophils (%) (Auto) 69.0 % Lymphocytes (%) (Auto) 23.4 % Monocytes (%) (Auto) 6.1 % Eosinophils (%) (Auto) 1.3 % Basophils (%) (Auto) 0.2 % Neutrophils # (Auto) 3.87 K/uL (1.4-6.5) Lymphocytes # (Auto) 1.31 K/uL (1.2-3.4) Monocytes # (Auto) 0.34 K/uL (0.11-0.59) Eosinophils # (Auto) 0.07 K/uL (0-0.5) Basophils # (Auto) 0.01 K/uL (0-0.2) RDW Standard Deviation 39.8 fL (36.4-46.3) RDW Coefficient of Variation 12.4 % (11.5-14.5) Immature Granulocyte % (Auto) 0.0 % Immature Granulocyte # (Auto) 0.00 K/uL (0.00-0.02) Anion Gap 10.0 mmol/L (3-11) Est Creatinine Clear Calc Drug Dose 98.3 ml/min Estimated GFR () 131.2 Estimated GFR (Non- 113.2 BUN/Creatinine Ratio 18.6 (10-20) Calcium Level 9.3 mg/dl (8.5-10.1) Total Bilirubin 0.6 mg/dl (0.2-1) Direct Bilirubin 0.1 mg/dl (0-0.2) Aspartate Amino Transf (AST/SGOT) 29 U/L (15-37) Alanine Aminotransferase (ALT/SGPT) 38 U/L (12-78) Alkaline Phosphatase 84 U/L (45-117) Total Protein 7.5 gm/dl (6.4-8.2) Albumin 4.1 gm/dl (3.4-5.0) Lipase 102 U/L (73-393) Urine Color DK YELLOW Urine Appearance CLEAR (CLEAR) Urine pH 7.0 (4.5-7.5) Urine Specific Olds 1.027 (1.000-1.030) Urine Protein NEG (NEG) Urine Glucose (UA) NEG (NEG) Urine Ketones 2+ (NEG) Urine Occult Blood NEG (NEG) Urine Nitrite NEG (NEG) Urine Bilirubin NEG (NEG) Urine Urobilinogen NEG (NEG) Urine Leukocyte Esterase NEG (NEG) Urine WBC (Auto) 1-5 /hpf (0-5) Urine RBC (Auto) 0-4 /hpf (0-4) Urine Hyaline Casts (Auto) 1-5 /lpf (0-5) Urine Epithelial Cells (Auto) >30 /lpf (0-5) Urine Bacteria (Auto) NEG (NEG) Urine Test NEG (NEG) Laboratory results per my review. Medications Administered Medications (Trade) Dose Ordered Sig/Tracy Route Start Time Stop Time Status Last Admin Dose Admin Sodium Chloride 1,000 ml @ 999 mls/hr Q1H1M STAT IV 08/28/17 08:27 08/28/17 09:27 DC 08/28/17 09:20 999 MLS/HR Ondansetron HCl 8 mg/Dextrose 54 ml @ 216 mls/hr TODAY@0827 IV 08/28/17 08:27 08/28/17 10:00 DC 08/28/17 09:54 216 MLS/HR Hydromorphone HCl (Dilaudid Inj) 0.5 mg NOW STAT IV 08/28/17 09:11 08/28/17 09:15 DC 08/28/17 09:21 0.5 MG Ketorolac Tromethamine (Toradol Inj) 30 mg NOW STAT IV 08/28/17 11:15 08/28/17 11:17 DC 08/28/17 12:03 30 MG Morphine Sulfate (MoRPHine SULFATE INJ) 4 mg NOW STAT IV 08/28/17 11:15 08/28/17 11:17 DC 08/28/17 11:58 4 MG Al Hydroxide/Mg Hydroxide (Maalox Susp) 30 ml STK-MED ONCE .ROUTE 08/28/17 12:02 08/28/17 12:03 DC 08/28/17 12:04 30 ML Lidocaine HCl (Viscous Lidocaine 2% Soln) 20 ml STK-MED ONCE .ROUTE 08/28/17 12:02 08/28/17 12:03 DC 08/28/17 12:04 20 ML ED Course ED COURSE: Vital signs were reviewed and appeared normal. The patients medical record was reviewed The above diagnostic studies were performed and reviewed. ED treatments and interventions as stated above. 0820: The patient was evaluated in room A9B. A complete history and physical examination was performed. 0827: Ordered Zofran 8 mg IV, Sodium Chloride 1000 ml @ 999 mls/hr IV. 0911: Ordered Dilaudid Inj 0.5 mg IV. 1111: I reassessed the patient. She is still having pain. 1115: Ordered GI Cocktail 24 mL PO, Morphine Sulfate 4 mg IV, Toradol Inj 30 mg IV. 1220: Upon reevaluation, the patient is resting comfortably. I discussed my findings with the patient and she understands and agrees with the treatment plan. Based on the patients age, coexisting illnesses, exam and lab findings the decision to treat as an outpatient was made. The patient remained stable while under my care. The patient appeared well at the time of discharge. Medical Decision Differential diagnoses includes but is not limited to gastritis, peptic ulcer disease, GERD, gallbladder disease, pancreatitis, small bowel obstruction, acute coronary syndrome, pericarditis, ischemic bowel, irritable bowel disease, irritable bowel syndrome, appendicitis, diverticulitis, malignancy, hernia, urinary tract infection, torsion, perforation, trauma, infectious. Patient is a 42-year-old female that presents to ER for periumbilical abdominal pain associated with nausea and intermittent vomiting. CBC along with BMP, LFTs , bilirubin lipase is negative. UA was negative. was negative. CT was unremarkable. Headache was much less in severity than her typical headaches. Patient was given IV fluids, Zofran, Toradol, morphine and GI cocktail. She did have improvement after GI cocktail. She was updated at bedside. She is discharged follow-up PCP as an outpatient with a prescription for Zofran. I do favor this likely viral in nature. Discussed with Pt concerning signs and symptoms to watch out for. Pt was instructed to follow up with their PCP and discussed with the patient their option to return to the ED at anytime for persistent or worsening symptoms. The appropriate anticipatory guidance and out-patient management, including indications for return to the emergency department, were explained at length to the patient and understood. Medication Reconcilliation Current Medication List: was personally reviewed by me Blood Pressure Screening Patient's blood pressure: Normal blood pressure Blood pressure disposition: Did not require urgent referral Impression Primary Impression: Abdominal pain Scribe Attestation The scribe's documentation has been prepared under my direction and personally reviewed by me in its entirety. I confirm that the note above accurately reflects all work, treatment, procedures, and medical decision making performed by me. Departure Information Dispostion Home / Self-Care Prescriptions Ondansetron Hcl (ZOFRAN) 4 Mg Tab 4 MG PO TID Y for Nausea, #30 TAB Prov: Lance Stokes, DO 08/28/17 Referrals Nathanael Roque III, M.D. (PCP) Forms HOME CARE DOCUMENTATION FORM, IMPORTANT VISIT INFORMATION, WORK / SCHOOL INSTRUCTIONS Patient Instructions Abdominal Pain - [facility], [facility] Additional Instructions Please follow up with your primary care doctor with in the next 24 hours. Any worsening of your symptoms, please return to the ED immediately. This includes any fevers greater than 100.4, worsening pain, chest pain, shortness breath, persistent nausea, vomiting, unable to eat or drink, or any other concerning signs or symptoms from your standpoint. Please take Zofran as needed for nausea. There is a Tylenol as needed for pain. Problem Qualifiers Primary Impression: Abdominal pain Abdominal location: unspecified location Qualified Codes: R10.9 - Unspecified abdominal pain
== END 2017-08-28 12:34 | disposition home or self-care (01) ==
LOC: C.EDB 07:56 → C.EDA 12:34
DX: R10.33 Periumbilical pain (principal); F41.9 Anxiety disorder, unspecified; G43.909 Migraine, unspecified, not intractable, without status migrainosus; Z79.899 Other long term (current) drug therapy; Z88.1 Allergy status to other antibiotic agents; Z88.8 Allergy status to other drugs, medicaments and biological substances